=== PATIENT | female | born 1945 | race Caucasian/White ===

== ENCOUNTER 2021-06-23 17:06 | Emergency (ER) | payer OTHER, MEDICARE ==
[2021-06-23] MEDS ORDERED: Morphine 4 MG/ML VIAL ONE (17:40)
[2021-06-23] MEDS ORDERED: Ondansetron ODT 4 MG TAB ONE (17:43)
== END 2021-06-23 19:06 | disposition home or self-care (01) ==
LOC: ERS 17:06
DX: S42.242A 4-part fracture of surgical neck of left humerus, initial encounter for closed fracture (principal); I10 Essential (primary) hypertension; F17.200 Nicotine dependence, unspecified, uncomplicated; Z79.899 Other long term (current) drug therapy; W01.0XXA Fall on same level from slipping, tripping and stumbling without subsequent striking against object, initial encounter
CPT/HCPCS: 96372; J2270; Q0162